=== PATIENT | male | born 1970 | race Caucasian/White ===

== ENCOUNTER 2019-04-04 17:18 | Inpatient (IN) ==
[2019-04-04] MEDS ORDERED: NS 1,000 ML IV ONE ×3 (17:47→23:32)
[2019-04-04] MEDS ORDERED: TORADOL IV ONE (18:10)
[2019-04-04] MEDS ORDERED: NORFLEX IV ONE (18:10)
[2019-04-04] MEDS ORDERED: DECADRON IV ONE (18:10)
[2019-04-04 18:25] LABS: ALLEN TEST YES; BE -6.1 mmoll (-3.0-3.0); BLOOD TYPE ARTERIAL; O2(CT) 20.9 mL/dL (15.0-23.0); O2HB 91.5 % (95.0-99.0); PCO2(98.6) 32 mmHg (35-45); PO2(98.6) 68 mmHg (60-100); SAMPLE BLOOD; SAO2 95.7 % (95.0-100.0); THB 16.3 g/dL (11.5-17.4); pH(98.6) 7.36 (7.35-7.45)
[2019-04-04 18:26] LABS: MODALITY ROOM AIR
--- NOTE | 2019-04-04 18:33 | Diag Imaging Result Doc PS360 ---
EXAM: CHEST-PORTABLE INDICATION: weakness TECHNIQUE: One view COMPARISON: 01/18/2019 FINDINGS: The lungs are grossly clear. There is no discrete pleural fluid collection or pneumothorax. The cardiomediastinal silhouette and central vasculature are grossly unremarkable. IMPRESSION: No evidence of acute pathology by plain radiograph. Electronically signed by Justin Kelly 04/04/2019 6:31 PM
[2019-04-04 18:39] LABS: BASO# 0.09 X1000 (0.0-0.2); BASO% 0.6 % (0.0-0.8); EOS# 0.29 X1000 (0.0-0.7); HEMATOCRIT 45.2 % (42.0-52.0); HEMOGLOBIN 15.6 g/dL (14.0-18.0); IMM GRAN# 0.06 X1000 (0.0-0.04); IMM GRAN% 0.4 % (0.0-0.5); LYMPH# 5.13 X1000 (1.2-3.4); LYMPH% 34.7 % (20.5-51.1); MCHC 34.5 g/dL (33-37); MCV 92.8 FL (81-99); MONO% 10.1 % (1.7-9.3); MPV 10.2 FL (7.4-10.4); NEUT# 7.73 X1000 (1.4-6.5); NEUT% 52.2 % (42.2-75.2); PLT 330 X1000 (130-400); RBC 4.87 XMIL (4.7-6.1); RDW 13.1 % (11.5-14.5)
--- NOTE | 2019-04-04 18:39 | EKG Report ---
Test Performed on : 04/04/2019 6:23:09 PM Test Reason : SOB Blood Pressure : / mmHG Vent. Rate : 087 BPM Atrial Rate : 087 BPM P-R Int : 154 ms QRS Dur : 078 ms QT Int : 364 ms P-R-T Axes : 053 -01 040 degrees QTc Int : 438 ms Normal sinus rhythm. Normal ECG When compared with ECG of 18-JAN-2019 01:28, No significant change was found Unconfirmed Result
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
[2019-04-04 18:56] LABS: INR 1.03; PROTIME 13.7 Seconds (11.0-16.0)
[2019-04-04 19:05] LABS: ALB/GLOB RATIO 1.3; ALBUMIN 4.7 g/dL (3.5-5.0); CALCIUM 10.7 mg/dL (8.8-10.2); CREATININE 3.4 mg/dL (0.7-1.2); MAGNESIUM 1.8 mg/dL (1.5-2.7); TOTAL BILIRUBIN 0.51 mg/dL (0.20-1.00); TOTAL PROTEIN 8.3 g/dL (6.3-8.3)
[2019-04-04 19:23] LABS: CK INDEX 2.6 (0.0-2.5); CK-MB 16.28 ng/mL (0.0-5.0)
[2019-04-05] MEDS ORDERED: LEVOPHED 8 MG in D5 1/2 NS 250 ML IV SCH (04:13)
[2019-04-05] MEDS ORDERED: ZOFRAN IV PRN (04:13)
[2019-04-05] MEDS: NS 1,000 ML IV SCH ×2 (04:28→13:57)
[2019-04-05] MEDS: HEPARIN SUBQ SCH ×2 (04:28→11:20)
[2019-04-05] MEDS: TYLENOL PO PRN ×2 (06:14→12:17)
[2019-04-05] MEDS: HUMALOG SUBQ SCH ×2 (06:15→11:21)
[2019-04-05 06:37] LABS: BASO# 0.01 X1000 (0.0-0.2); BASO% 0.1 % (0.0-0.8); EOS# 0.01 X1000 (0.0-0.7); EOS% 0.1 % (0.0-10.0); HEMATOCRIT 41.1 % (42.0-52.0); HEMOGLOBIN 14.1 g/dL (14.0-18.0); IMM GRAN# 0.02 X1000 (0.0-0.04); IMM GRAN% 0.2 % (0.0-0.5); LYMPH# 1.52 X1000 (1.2-3.4); MCH 32.4 PG (27-31); MCHC 34.3 g/dL (33-37); MCV 94.5 FL (81-99); MONO# 0.24 X1000 (0.11-0.59); MONO% 2.5 % (1.7-9.3); MPV 10.4 FL (7.4-10.4); NEUT# 7.72 X1000 (1.4-6.5); NEUT% 81.1 % (42.2-75.2); PLT 218 X1000 (130-400); RBC 4.35 XMIL (4.7-6.1); RDW 12.8 % (11.5-14.5); WBC 9.52 X1000 (4.8-10.8)
[2019-04-05 06:48] LABS: HEMOGLOBIN A1C 7.7 % (4.8-6.0)
[2019-04-05 06:59] LABS: CALCIUM 8.7 mg/dL (8.8-10.2); CREATININE 2.2 mg/dL (0.7-1.2); POTASSIUM 4.8 mmol/L (3.5-5.1)
--- NOTE | 2019-04-05 07:31 | HISTORY AND PHYSICAL ---
CHIEF COMPLAINT: Neck pain, blurred vision and shortness of breath. HISTORY OF PRESENT ILLNESS: This is a 48-year-old male with a history of diabetes mellitus type 2, hypertension, depression, coronary artery disease status post myocardial infarction and methamphetamine use which reportedly stopped 6 months ago. He came into the emergency room today with neck pain, back pain, bilateral leg pain. Had an episode of losing his bowels today when picking up plywood. Stated his right leg went numb. Patient also had complained of smoky vision in the emergency room. He was noted to be hypotensive. He took Norcos prior to arrival. Looks like he was given Decadron and Toradol in the emergency room. His laboratory data came back and showed that he was in acute kidney injury. He was given fluids. He will be admitted to ICU for further evaluation and treatment. PAST MEDICAL HISTORY: See HPI. PREVIOUS SURGICAL HISTORY: Cholecystectomy and tumor removal from throat. ALLERGIES: Methocarbamol, amitriptyline and adhesives. FAMILY HISTORY: Mother had myocardial infarction and stomach cancer. Father had liver failure related to alcohol. Brother had nonspecified cancer. SOCIAL HISTORY: Lives with his . Smokes a pack and a half of cigarettes a day. Did use methamphetamine for around a year, stopped 6 months ago. Uses alcohol occasionally. Does not work. He is disabled. REVIEW OF SYSTEMS: Fourteen point review of systems conducted with the patient. Pertinent positives listed above in the HPI. All systems reviewed and found to be negative. PHYSICAL EXAMINATION: VITAL SIGNS: Temperature 97.8 degrees, pulse 85, respirations 13, blood pressure 109/60, has been as low as 80s systolic in the emergency room. Oxygen saturation 93-96% on room air. GENERAL: A 48-year-old male lying in the ER stretcher. Was somewhat belligerent. Did not really want to engage in the interview. was at the bedside and gave most of the information. He is alert and oriented x3. HEENT: Head is atraumatic, normocephalic. Pupils equal, round and reactive to light. Extraocular eye movements intact. Sclerae anicteric. Conjunctivae pink. Oral mucosa is dry. NECK: Supple. No JVD. No thyromegaly. Trachea is midline. No cervical lymphadenopathy. CARDIAC: S1, S2 appreciated. No murmurs, gallops, rubs. LUNGS: Clear to auscultation bilaterally. No rhonchi, wheezes or rubs. Symmetric rise and fall of respirations. ABDOMEN: Protuberant, soft, nondistended, nontender. Bowel sounds present in all 4 quadrants. Normoactive. No pulsatile masses or organomegaly. EXTREMITIES: No cyanosis, clubbing or edema. 1+ pedal pulses bilaterally. GENITOURINARY: No bladder distention. Otherwise deferred. NEUROLOGICAL: Alert and oriented x3. Cranial nerves 2-12 appear to be grossly intact. DIAGNOSTIC DATA: Lumbar spine and cervical spine official report pending. EKG normal sinus rhythm, rate 87. LABORATORY DATA: WBC 14.80, hemoglobin 15.6, hematocrit 45.2, platelet count 330,000. Sodium 139, potassium 4, chloride 101, carbon dioxide 16, BUN 38, creatinine 3.4, glucose 190. CK 620. ASSESSMENT AND PLAN: 1. Acute kidney injury. This is likely due to fluid volume depleted compounded by the fact that the patient takes lisinopril for his hypertension. We will hold lisinopril at this time, give fluids. Continue to monitor. 2. Metabolic encephalopathy. He does seem somewhat belligerent states that he is altered. We will continue to monitor. Recheck laboratory data. 3. Chronic pain. At this time, we might give pain medication. Continue to monitor. 4. Diabetes mellitus type 2 with hyperglycemia. Check hemoglobin A1c, sliding scale insulin, fingerstick blood sugars. 5. Mild rhabdomyolysis. Recheck CK profile this morning after patient receives fluids. 6. Coronary artery disease. Continue home medications. Further recommendations per patient's clinical course. Critical Care Time- 30 minutes Dictated by LASHONDA Alberts for Gavin Contreras MD I have performed a face to face diagnostic evaluation. Labs/ Xrays- reviewed. Exam- chest - clear, Neuro- agitated. A/P- SPEEDY, AMS- Admit, IV fluids, Neuro checks, Labs. Dr. Contreras cc: LASHONDA Alberts MD Samuel Gillespie, MD [facility]
[2019-04-05 07:40] LABS: CK INDEX 3.1 (0.0-2.5); CK-MB 13.16 ng/mL (0.0-5.0)
[2019-04-05] MEDS ORDERED: CARDIZEM CD PO SCH (09:00)
[2019-04-05] MEDS ORDERED: CYMBALTA PO SCH (09:00)
[2019-04-05] MEDS ORDERED: LYRICA PO SCH (09:00)
[2019-04-05] MEDS ORDERED: TOPROL XL PO SCH (09:00)
[2019-04-05 09:48] LABS: URINE SOURCE CLEAN CATCH
[2019-04-05 09:57] LABS: BILIRUBIN URINE NEGATIVE (NEGATIVE); BLOOD URINE NEGATIVE (NEGATIVE); COLOR STRAW; GLUCOSE URINE 300 mg/dL (NEGATIVE); KETONE URINE NEGATIVE (NEGATIVE); LEUKOCYTES URINE NEGATIVE (NEGATIVE); NITRITE URINE NEGATIVE (NEGATIVE); PROTEIN URINE NEGATIVE (NEGATIVE); SP GRAVITY URINE 1.007; TURBIDITY URINE CLEAR (CLEAR); UROBILINOGEN URINE NORMAL (NORMAL)
[2019-04-05 09:58] LABS: UR EPITHELIAL CELLS <10 /HPF (<10); URINE BACTERIA NEGATIVE /HPF; URINE RBC <10 /HPF (<10); URINE WBC <10 /HPF (<10)
[2019-04-05] MEDS ORDERED: NICODERM PATCH TD SCH (10:15)
--- NOTE | 2019-04-05 10:24 | Diag Imaging Result Doc PS360 ---
EXAM: CT CERVICAL SPINE W/O CONTRAST INDICATION: neck pain with incontinence TECHNIQUE: This exam was performed using automated exposure control, adjustment of mA or kV according to patient size, and/or use of iterative reconstruction technique. COMPARISON: 01/16/2012 FINDINGS: There is mild to moderate multilevel endplate degenerative change. It is similar or slightly worse than the previous study. It is probably most significant at C4-5 where uncovertebral osteophytes are causing bilateral moderate foraminal narrowing. There is also moderate left neuroforaminal narrowing at C5-6. Otherwise, there is no discrete fracture, subluxation, or significant intrinsic osseous lesion. The surrounding soft tissues are essentially unremarkable. IMPRESSION: Multilevel mild to moderate degenerative arthropathy as described above. No evidence of acute osseous abnormality. Electronically signed by Justin Kelly 04/05/2019 10:22 AM
--- NOTE | 2019-04-05 10:31 | Diag Imaging Result Doc PS360 ---
EXAM: CT LUMBAR SPINE W/O CONTRAST INDICATION: back pain, incontinence TECHNIQUE: This exam was performed using automated exposure control, adjustment of mA or kV according to patient size, and/or use of iterative reconstruction technique. COMPARISON: 10/02/2011 FINDINGS: There is a stable chronic compression deformity at L1. There are moderate multilevel degenerative disc changes and endplate changes throughout the lumbar spine. There is also facet arthropathy at several lumbar levels, worst at L5-S1 on the left. These degenerative changes are causing varying degrees of mild and moderate central canal and neuroforaminal narrowing. It is very similar to the previous study. The central canal narrowing is probably most significant at L4-5 where there appears to be moderate central stenosis. Otherwise, there is no definite acute fracture, subluxation, or significant intrinsic osseous lesion. The surrounding soft tissues are essentially unremarkable. IMPRESSION: Multilevel degenerative arthropathy that is similar to the previous study and a chronic compression deformity at L1. No evidence of acute osseous abnormality involving the L-spine. Electronically signed by Justin Kelly 04/05/2019 10:29 AM
[2019-04-05 12:05] LABS: UR AMPHETAMINES QUAL PRESUMPTIVE POSITIVE (NONE DETECT); UR BARBITUATES QUAL NONE DETECTED (NONE DETECT); UR BENZODIAZEPIN QUAL NONE DETECTED (NONE DETECT); UR CANNABINOIDS QUAL NONE DETECTED (NONE DETECT); UR COCAINE QUAL NONE DETECTED (NONE DETECT); UR METHADONE QUAL NONE DETECTED (NONE DETECT); UR OPIATES QUAL NONE DETECTED (NONE DETECT); UR OXYCODONE QUAL NONE DETECTED (NONE DETECT); UR PCP QUAL NONE DETECTED (NONE DETECT)
[2019-04-05] MEDS ORDERED: SPIRIVA INH ONE (12:34)
[2019-04-05] MEDS ORDERED: NORCO-7.5 PO PRN (13:45)
[2019-04-05 14:34] VITALS: BP 139/87
--- NOTE | 2019-04-05 18:00 | Diag Imaging Result Doc PS360 ---
EXAM: US RENAL 2 (RETROPER) COMPLETE INDICATION: SPEEDY r/o obstruction TECHNIQUE: COMPARISON: None. FINDINGS: The kidneys are grossly normal in echotexture with no discrete solid mass or hydronephrosis. The right kidney measures 12.3 cm and the left kidney measures 13.5 cm in the greatest longitudinal axes. The urinary bladder is completely nondistended and cannot be evaluated. IMPRESSION: Unremarkable renal ultrasound. Electronically signed by Justin Kelly 04/05/2019 5:58 PM
--- NOTE | 2019-04-05 18:15 | DISCHARGE SUMMARY ---
ADMISSION DATE: 04/05/2019 DISCHARGE DATE: 04/05/2019 DISCHARGE DIAGNOSES: 1. Metabolic encephalopathy. 2. Acute kidney injury. 3. Chronic pain. 4. Type 2 diabetes. 5. Mild rhabdomyolysis. 6. History of coronary artery disease. PROCEDURES PERFORMED: Chest x-ray, 04/04/2019, no evidence of acute pathology by plain radiograph. Cervical CT scan of the spine without contrast impression, multilevel, mild-to- moderate degenerative arthropathy, no evidence of acute bone abnormality. Lumbar spine CT scan impression, multilevel degenerative arthropathy that is similar to the previous study and a chronic compression/deformity at L1, but no acute bone abnormality involving the L-spine. Renal ultrasound dated 04/05/2019, pending results at the moment of this dictation. HOSPITAL COURSE: A 48-year-old male with past medical history of diabetes, hypertension, depression, coronary artery disease, status post LA, and methamphetamine use which apparently he stopped using it 6 months ago. He came into the emergency department on 04/04/2019, and admitted by Internal Medicine on 04/05/2019. He was complaining of neck pain, back pain, bilateral leg pain. He had an episode of losing his bowel the day of admission when he was picking up plyOnBeep. He stated that his right leg went numb, also blurry vision/smoky vision in the emergency room. He was noted to be somehow hypotensive. He took [place] prior to arrival, and it looks like he was given Decadron and Toradol in the emergency room. In the emergency department, laboratory showed acute kidney injury and also leukocytosis, elevated CK level and slight elevation of the LFTs. At the moment of the physical exam by the admitting doctor/nurse practitioner, he was alert and oriented x3. Because of the lab work, he received IV fluids. His lab work today is better. His WBC normalized and his kidney function is improving, and he is having good urine output. His creatinine decreased from 3.4 to 2.2, which is still elevated. His baseline is around 0.9 to 1.1. CK level decreased from 620 to 426. His urine output today was around 1675, and he was able to tolerate p.o. 100 percent. I evaluated this patient twice. In the morning, he was sleepy, but I stopped all of the blood pressure medications because the blood pressure was around the 100s and 110s. Then in the afternoon, he was completely awake, alert, and oriented x3, following commands. As per the patient, he was feeling much better and no more complaints. I received a call from the nurse in the ICU. It looks like this patient signed all the paperwork and left AMA. cc: Greg Crowder MD
[2019-04-06] MEDS ORDERED: SPIRIVA INH SCH (07:30)
[2019-04-06] MEDS ORDERED: VITAMIN D PO SCH (09:00)
== END 2019-04-05 16:44 | disposition left against medical advice (07) | DRG 682 ==
LOC: ED 17:18 → ICU 04-05 03:40 → SUATTDRO 04-05 03:40 → ICU 04-05 04:18
PROVIDERS: ATTEND Internal Medicine